=== PATIENT | male | born 1995 | race African-American/Black ===

== ENCOUNTER 2023-01-11 09:27 | Emergency (ER) | payer OTHER ==
[~2023-01-11] VITALS: Ht 167.6 cm; Wt 136.4 kg
[2023-01-11 10:49] LABS: BASOPHILS % (AUTO) 0.5 % (0.0-2.0); EOSINOPHILS % (AUTO) 0 % (1.0-6.0); HEMATOCRIT 45.1 % (41-53); HEMOGLOBIN 15.2 g/dL (13.5-17.5); LYMPHOCYTES # (AUTO) 1.5 K/uL (1.0-4.8); LYMPHOCYTES % (AUTO) 11.7 % (22.0-44.0); MEAN CORPUSCULAR HGB CONC 33.8 G/dL (31.0-37.0); MEAN CORPUSCULAR VOLUME 92 fL (80-100); MONOCYTES # (AUTO) 0.6 K/uL (0.1-1.0); NEUTROPHILS # (AUTO) 10.5 K/uL (1.8-7.7); NEUTROPHILS % (AUTO) 82.8 % (40.0-70.0); PLATELET COUNT (AUTO) 435 K/uL (150-450); RED BLOOD CELL COUNT(AUTO) 4.92 MIL/uL (4.50-5.90); RED CELL DISTRIBUTION WIDTH 13.6 % (11.5-14.5)
[2023-01-11 10:50] LABS: ANION GAP 12 mmol/L (8-16); CALCIUM, TOTAL 10.1 mg/dL (8.8-10.5); CARBON DIOXIDE 23 mmol/L (22-29); CHLORIDE 98 mmol/L (98-107); CREATININE 1.01 mg/dL (0.60-1.30); GLOMERULAR FILTR. RATE CALC > 60 mL/min (>60); GLUCOSE,RANDOM 99 mg/dL (70-110); POTASSIUM 4.1 mmol/L (3.5-5.1); SODIUM SERUM 133 mmol/L (136-145); UREA NITROGEN, BLOOD 8 mg/dL (7-18)
[2023-01-11 10:56] LABS: ALANINE AMINOTRANSFERASE 87 U/L (12-78); ALBUMIN 4.5 g/dL (3.4-5.0); ALKALINE PHOSPHATASE 107 U/L (46-116); ASPARTATE AMINOTRANSFERASE 97 U/L (15-37); BILIRUBIN,TOTAL 0.6 mg/dL (0.1-1.0); TOTAL PROTEIN, SERUM 9.8 g/dL (6.4-8.2)
[2023-01-11 11:00] LABS: LACTIC ACID 1.5 mmol/L (0.4-2.0)
[2023-01-11] MEDS ORDERED: SODIUM CHLORIDE 0.9% 1,000 ML IV ONE (11:00)
[2023-01-11 11:06] LABS: LITHIUM < 0.20 mmol/L (0.60-1.20)
[2023-01-11 12:36] LABS: APPEARANCE,URINE CLEAR (CLEAR); BILIRUBIN,URINE NEGATIVE (NEGATIVE); GLUCOSE, URINE (UA) NEGATIVE (NEGATIVE); KETONES,URINE 80-100 mg/dL (NEGATIVE); LEUKOCYTE ESTERASE ,URINE NEGATIVE (NEGATIVE); NITRATE,URINE NEGATIVE (NEGATIVE); OCCULT BLOOD,URINE SMALL (NEGATIVE); PROTEIN,URINE 300-600,SEE CONFIRM mg/dL (NEGATIVE); UROBILINOGEN,URINE <=1.0 mg/dL (<=1.0)
[2023-01-11 12:42] LABS: AMPHET/METH SCREEN,URINE NEGATIVE (NEGATIVE); BARBITURATE SCREEN, URINE NEGATIVE (NEGATIVE); BENZODIAZEPINES SCREEN,URINE NEGATIVE (NEGATIVE); CANNABINOID SCREEN,URINE POSITIVE (NEGATIVE); COCAINE SCREEN,URINE NEGATIVE (NEGATIVE); METHADONE SCREEN, URINE NEGATIVE (NEGATIVE); OPIATE SCREEN,URINE NEGATIVE (NEGATIVE); PHENCYCLIDINE SCREEN,URINE NEGATIVE (NEGATIVE)
[2023-01-11 12:53] LABS: SULFOSALICYLIC ACID,URINE 3+ (Negative)
[2023-01-11 12:54] LABS: BACTERIA,URINE None Seen /HPF (None Seen); WBC,URINE None Seen /HPF (0-5)
[2023-01-11 13:03] VITALS: BP 123/60
[2023-01-12] MEDS ORDERED: LITH300CRT PO (09:43)
[2023-01-12] MEDS ORDERED: LAMO25TA25 PO (09:43)
== END 2023-01-11 13:55 | disposition home or self-care (01) ==
LOC: EMS 09:31
DX: R80.9 Proteinuria, unspecified (principal); R35.0 Frequency of micturition; R00.0 Tachycardia, unspecified; F41.9 Anxiety disorder, unspecified; J45.909 Unspecified asthma, uncomplicated; F31.9 Bipolar disorder, unspecified; F84.0 Autistic disorder; F12.90 Cannabis use, unspecified, uncomplicated; Z87.891 Personal history of nicotine dependence
CPT/HCPCS: 99284; 96360; 80053; 80178; 81002; 83605; 85025; 36415; 93005; 81001; 80307 ×2; J7030

== ENCOUNTER 2023-01-12 09:36 | Emergency (ER) | payer OTHER ==
[~2023-01-12] VITALS: Ht 172.7 cm; Wt 136.4 kg
[2023-01-12 09:41] VITALS: BP 133/82
[2023-01-12] MEDS ORDERED: LITH300CRT PO (09:43)
[2023-01-12] MEDS ORDERED: LAMO25TA25 PO (09:43)
[2023-01-12] MEDS ORDERED: LIDOCAINE/PF 1% 2 ML VIAL IM ONE (13:30)
[2023-01-12] MEDS ORDERED: CefTRIAXone SODIUM 1 GM/VIAL IM ONE (13:30)
[2023-01-12] MEDS ORDERED: AZITHROMYCIN 500 MG TABLET PO ONE (13:30)
== END 2023-01-12 14:13 | disposition home or self-care (01) ==
LOC: EMS 09:39
DX: F41.9 Anxiety disorder, unspecified (principal); N34.2 Other urethritis; J45.909 Unspecified asthma, uncomplicated; F31.9 Bipolar disorder, unspecified; F12.90 Cannabis use, unspecified, uncomplicated; F84.0 Autistic disorder; Z87.891 Personal history of nicotine dependence
CPT/HCPCS: 99283; 96372; J0696; J3490; Q9967

== ENCOUNTER 2023-02-11 08:27 | Emergency (ER) | payer OTHER ==
[~2023-02-11] VITALS: Ht 167.6 cm; Wt 136.4 kg
[~2023-02-11 08:27] MED LIST: LAMO25TA25 PO; LITH300CRT PO
[2023-02-11 08:34] VITALS: BP 117/59
[2023-02-11] MEDS ORDERED: LITH600C5 PO (08:36)
[2023-02-11] MEDS ORDERED: LAMO100 PO (08:36)
[2023-02-11] MEDS ORDERED: ALBU90AE IH (08:36)
[2023-02-11] MEDS ORDERED: ACETAMINOPHEN 325 MG TABLET PO ONE (09:00)
[2023-02-11] MEDS ORDERED: MAG HYDROX/AL HYDROX/SIMETH ES 30 ML SUSPENSION UDCUP PO ONE (09:00)
[2023-02-11] MEDS ORDERED: FAMOTIDINE 20 MG TABLET PO ONE (09:00)
[2023-02-11 09:29] LABS: APPEARANCE,URINE CLEAR (CLEAR); BILIRUBIN,URINE NEGATIVE (NEGATIVE); GLUCOSE, URINE (UA) NEGATIVE (NEGATIVE); KETONES,URINE NEGATIVE (NEGATIVE); LEUKOCYTE ESTERASE ,URINE NEGATIVE (NEGATIVE); NITRATE,URINE NEGATIVE (NEGATIVE); OCCULT BLOOD,URINE NEGATIVE (NEGATIVE); PROTEIN,URINE 30-70 mg/dL (NEGATIVE); SPECIFIC GRAVITIY, URINE 1.022 (1.003-1.030); UROBILINOGEN,URINE <=1.0 mg/dL (<=1.0)
[2023-02-11 09:31] LABS: BACTERIA,URINE None Seen /HPF (None Seen); RBC,URINE None Seen /HPF (0-2); WBC,URINE None Seen /HPF (0-5)
== END 2023-02-11 10:41 | disposition home or self-care (01) ==
LOC: EMS 08:29
DX: R10.9 Unspecified abdominal pain (principal); F41.9 Anxiety disorder, unspecified; J45.909 Unspecified asthma, uncomplicated; F31.9 Bipolar disorder, unspecified; F12.90 Cannabis use, unspecified, uncomplicated; F84.0 Autistic disorder; Z87.891 Personal history of nicotine dependence
CPT/HCPCS: 81001; 99284; Z7502; Z7610

== ENCOUNTER 2023-03-20 12:05 | Inpatient (IN) | payer MEDICAID, OTHER ==
[~2023-03-20] VITALS: Ht 172.7 cm; Wt 125.6 kg
[~2023-03-20 12:05] MED LIST changes: +ALBU90AE IH; +LAMO100 PO; -LAMO25TA25 PO; -LITH300CRT PO; +LITH600C5 PO
[2023-03-20 12:47] LABS: COVID AG,FIA SOURCE NASOPHARYNGEAL
[2023-03-20 12:49] LABS: BASOPHILS % (AUTO) 0.4 % (0.0-2.0); EOSINOPHILS % (AUTO) 1.6 % (1.0-6.0); HEMATOCRIT 43.6 % (41-53); HEMOGLOBIN 14.2 g/dL (13.5-17.5); LYMPHOCYTES # (AUTO) 1.9 K/uL (1.0-4.8); LYMPHOCYTES % (AUTO) 16.8 % (22.0-44.0); MEAN CORPUSCULAR HEMOGLOBIN 30.3 pg (26.0-34.0); MEAN CORPUSCULAR HGB CONC 32.6 G/dL (31.0-37.0); MEAN CORPUSCULAR VOLUME 93 fL (80-100); MONOCYTES # (AUTO) 0.9 K/uL (0.1-1.0); NEUTROPHILS # (AUTO) 8.5 K/uL (1.8-7.7); NEUTROPHILS % (AUTO) 73.2 % (40.0-70.0); PLATELET COUNT (AUTO) 368 K/uL (150-450); RED BLOOD CELL COUNT(AUTO) 4.69 MIL/uL (4.50-5.90); RED CELL DISTRIBUTION WIDTH 14.7 % (11.5-14.5)
[2023-03-20 12:59] LABS: CHLORIDE 103 mmol/L (98-107); POTASSIUM 3.4 mmol/L (3.5-5.1); SODIUM SERUM 142 mmol/L (136-145)
[2023-03-20 13:00] LABS: ANION GAP 14 mmol/L (8-16); CARBON DIOXIDE 25 mmol/L (22-29); CREATININE 1.14 mg/dL (0.60-1.30); GLOMERULAR FILTR. RATE CALC > 60 mL/min (>60); GLUCOSE,RANDOM 86 mg/dL (70-110)
[2023-03-20] MEDS ORDERED: LORazepam 2 MG/ML VIAL IM ONE ×2 (13:00→15:00)
[2023-03-20] MEDS ORDERED: HALOPERIDOL LACTATE 5 MG/ML VIAL IM ONE ×2 (13:00→15:00)
[2023-03-20] MEDS ORDERED: DiphenhydrAMINE HCL 50 MG/ML VIAL IM ONE (13:00)
[2023-03-20 13:08] LABS: ALANINE AMINOTRANSFERASE 165 U/L (12-78); ALBUMIN 4.4 g/dL (3.4-5.0); ALKALINE PHOSPHATASE 93 U/L (46-116); ASPARTATE AMINOTRANSFERASE 147 U/L (15-37); BILIRUBIN,TOTAL 0.5 mg/dL (0.1-1.0); TOTAL PROTEIN, SERUM 8.3 g/dL (6.4-8.2)
[2023-03-20] MEDS ORDERED: ZOLPIDEM TARTRATE 10 MG TABLET PO PRN (13:15)
[2023-03-20] MEDS ORDERED: POTASSIUM CHLORIDE 10% 40 MEQ/30 ML LIQUID UDCUP PO ONE (17:15)
[2023-03-21 00:14] LABS: APPEARANCE,URINE CLEAR (CLEAR); BILIRUBIN,URINE NEGATIVE (NEGATIVE); GLUCOSE, URINE (UA) NEGATIVE (NEGATIVE); LEUKOCYTE ESTERASE ,URINE NEGATIVE (NEGATIVE); NITRATE,URINE NEGATIVE (NEGATIVE); OCCULT BLOOD,URINE TRACE (NEGATIVE); PH,URINE 5.5 (5.0-8.0); PROTEIN,URINE 30-70 mg/dL (NEGATIVE); SPECIFIC GRAVITIY, URINE 1.018 (1.003-1.030); UROBILINOGEN,URINE <=1.0 mg/dL (<=1.0)
[2023-03-21 00:35] LABS: BACTERIA,URINE None Seen /HPF (None Seen); RBC,URINE 0-2 /HPF (0-2); SQUAMOUS EPITHELIAL CELL,UR None Seen /LPF (None Seen); WBC,URINE None Seen /HPF (0-5)
[2023-03-21 00:38] LABS: AMPHET/METH SCREEN,URINE NEGATIVE (NEGATIVE); BARBITURATE SCREEN, URINE NEGATIVE (NEGATIVE); COCAINE SCREEN,URINE NEGATIVE (NEGATIVE)
[2023-03-21 00:39] LABS: CANNABINOID SCREEN,URINE POSITIVE (NEGATIVE); METHADONE SCREEN, URINE NEGATIVE (NEGATIVE); OPIATE SCREEN,URINE NEGATIVE (NEGATIVE); PHENCYCLIDINE SCREEN,URINE NEGATIVE (NEGATIVE)
[2023-03-21 00:40] LABS: BENZODIAZEPINES SCREEN,URINE POSITIVE (NEGATIVE)
[2023-03-21] MEDS: HALOPERIDOL 5 MG TABLET PO PRN ×2 (05:05→10:53)
[2023-03-21] MEDS: LORazepam 2 MG TABLET PO PRN ×2 (05:05→10:53)
[2023-03-21] MEDS ORDERED: DiphenhydrAMINE HCL 50 MG/ML VIAL IM ONE (05:30)
[2023-03-21] MEDS ORDERED: LORazepam 2 MG/ML VIAL IM ONE (05:30)
[2023-03-21 09:43] VITALS: BP 148/82
[2023-03-21] MEDS: ALBUTEROL SULFATE HFA 90 MCG/PUFF 8 GM INHALER IH SCH (10:15)
[2023-03-21] MEDS ORDERED: PNEUMOCOCCAL VACCINE POLYVALENT 0.5 ML VIAL [PPSV23] IM. ONE (10:45)
[2023-03-21] MEDS ORDERED: HYDR-4584 PO (10:46)
[2023-03-21] MEDS ORDERED: CLIN60SO13 TP (10:46)
[2023-03-21] MEDS ORDERED: BETA60L TP (10:46)
[2023-03-21] MEDS ORDERED: ESCI10 PO (10:46)
[2023-03-21] MEDS: ESCITALOPRAM OXALATE 10 MG TABLET PO SCH (10:53)
[2023-03-21] MEDS: LITHIUM CARBONATE 600 MG CAPSULE PO SCH (10:53)
[2023-03-21] MEDS: LamoTRIgine 100 MG TABLET PO SCH (10:54)
[2023-03-22] MEDS: LORazepam 2 MG TABLET PO PRN ×2 (06:22→14:14)
[2023-03-22] MEDS: HALOPERIDOL 5 MG TABLET PO PRN ×2 (06:23→14:14)
[2023-03-22] MEDS ORDERED: HALOPERIDOL LACTATE 5 MG/ML VIAL IM ONE (07:00)
[2023-03-22] MEDS ORDERED: LORazepam 2 MG/ML VIAL IM ONE (07:00)
[2023-03-22] MEDS ORDERED: DiphenhydrAMINE HCL 50 MG/ML VIAL IM ONE (07:00)
[2023-03-22] MEDS ORDERED: DiphenhydrAMINE HCL 50 MG/ML VIAL ONE ×2 (07:02→07:05)
[2023-03-22] MEDS ORDERED: HALOPERIDOL LACTATE 5 MG/ML VIAL ONE ×2 (07:02→07:05)
[2023-03-22] MEDS ORDERED: LORazepam 2 MG/ML VIAL ONE ×2 (07:02→07:05)
[2023-03-22] MEDS: LamoTRIgine 100 MG TABLET PO SCH (07:29)
[2023-03-22] MEDS: LITHIUM CARBONATE 600 MG CAPSULE PO SCH (07:30)
[2023-03-22] MEDS: ESCITALOPRAM OXALATE 10 MG TABLET PO SCH (07:30)
[2023-03-22] MEDS: ALBUTEROL SULFATE HFA 90 MCG/PUFF 8 GM INHALER IH SCH (07:34)
[2023-03-23] MEDS: LamoTRIgine 100 MG TABLET PO SCH (08:09)
[2023-03-23] MEDS: LITHIUM CARBONATE 600 MG CAPSULE PO SCH (08:09)
[2023-03-23] MEDS: ESCITALOPRAM OXALATE 10 MG TABLET PO SCH (08:09)
[2023-03-23 08:14] VITALS: BP 132/79
[2023-03-23] MEDS: LORazepam 2 MG TABLET PO PRN (11:03)
[2023-03-23] MEDS: HALOPERIDOL 5 MG TABLET PO PRN (11:03)
[2023-03-23] MEDS: ALBUTEROL SULFATE HFA 90 MCG/PUFF 8 GM INHALER IH SCH (12:24)
[2023-03-23] MEDS ORDERED: LORazepam 2 MG/ML VIAL IM ONE (15:30)
[2023-03-23] MEDS ORDERED: DiphenhydrAMINE HCL 50 MG/ML VIAL IM ONE (15:30)
[2023-03-23] MEDS: HALOPERIDOL LACTATE 5 MG/ML VIAL IM ONE ×2 (15:41→15:45)
[2023-03-24] MEDS: ESCITALOPRAM OXALATE 10 MG TABLET PO SCH (08:35)
[2023-03-24] MEDS: LamoTRIgine 100 MG TABLET PO SCH (08:36)
[2023-03-24] MEDS: LITHIUM CARBONATE 600 MG CAPSULE PO SCH (08:36)
[2023-03-24] MEDS: ALBUTEROL SULFATE HFA 90 MCG/PUFF 8 GM INHALER IH SCH (08:36)
[2023-03-24 08:52] VITALS: BP 138/94
[2023-03-24] MEDS ORDERED: LAMO100 PO (09:54)
[2023-03-24] MEDS ORDERED: ESCI10 PO (09:54)
[2023-03-24] MEDS ORDERED: LITH600C5 PO (09:54)
== END 2023-03-24 18:01 | disposition left against medical advice (07) | DRG 753 ==
LOC: EMS 12:11 → 3EC 03-21 02:01
PROVIDERS: ADMIT Psychiatry & Neurology Child & Adolescent Psychiatry; ATTEND Psychiatry & Neurology Child & Adolescent Psychiatry
DX: F31.2 Bipolar disorder, current episode manic severe with psychotic features (principal); D72.829 Elevated white blood cell count, unspecified; Z20.822 Contact with and (suspected) exposure to COVID-19; E66.9 Obesity, unspecified; F17.200 Nicotine dependence, unspecified, uncomplicated; Z53.29 Procedure and treatment not carried out because of patient's decision for other reasons; E87.6 Hypokalemia; E73.9 Lactose intolerance, unspecified; F12.90 Cannabis use, unspecified, uncomplicated; F84.0 Autistic disorder; F41.9 Anxiety disorder, unspecified; J45.909 Unspecified asthma, uncomplicated; Z28.21 Immunization not carried out because of patient refusal; Z79.899 Other long term (current) drug therapy; Z68.41 Body mass index [BMI] 40.0-44.9, adult; Z71.6 Tobacco abuse counseling
CPT/HCPCS: 80053; 80178; 80307; 81001; 85025; 99291; G0480; J1200; J1630; J2060; J3535